=== PATIENT | female | born 1965 | race African-American/Black ===

== ENCOUNTER 2019-02-08 05:04 | Day surgery (SDC) | payer MEDICAID ==
[2019-02-08] VITALS (7 sets, daily range): BP systolic 127–159; BP diastolic 69–96
[~2019-02-08] VITALS: Ht 160 cm; Wt 71.7 kg
--- NOTE | 2019-02-08 05:15 | NUR ---
MS RN OPENING NOTES: RECEIVED PT ON ROOM AIR AND TOLERATING WELL. IV TO BE STARTED. NO SOB NOTED. NO S/S OF DISTRESS. PT AMBULATORY. CONSENTS TO BE SIGNED AND PLACED IN CHART. BED KEPT IN LOW, LOCKED POSITION, AND SIDE RAILS X 2UP. WILL CONTINUE TO MONITOR PT.
[2019-02-08] MEDS ORDERED: FLUT1DIS INH (06:16)
[2019-02-08] MEDS ORDERED: HYDR25TA4 PO (06:52)
--- NOTE | 2019-02-08 07:24 | NUR ---
MS RN CLOSING NOTES: ALL NEEDS WERE ATTENDED AND ANTICIPATED FOR. PT KEPT CLEAN, DRY, AND COMFORTABLE. PT HAS BEEN NPO SINCE 2329 PT VERBALIZED. PT SIGNED CONSENTS AND PLACED IN CHART. IV ON R FOREARM #20G AND IS PATENT AND INTACT. CURRENTLY H/L. BED KEPT IN LOW, LOCKED POSITION, AND SIDE RAILS X 2UP. PT AWAITING TO GO FOR SX WITH DR. SHEA. ENDORSED TO AM NURSE FOR IRENE.
--- NOTE | 2019-02-08 07:30 | NUR ---
m/s clerical office: initial assessment received pt in bed awake, a/ox4. no c/o pain or any discomfort. pt for surgery today on her right knee. pt last ate at 1130 last night as stated. pt remains npo. all consents in chart. instructed to call for assistance. will continue to monitor.
--- NOTE | 2019-02-08 07:50 | NUR ---
m/s email specialist: notes pt was taken to o.r. at this time via bed.
[2019-02-08] MEDS ORDERED: BUPIVACAINE 0.5 % PF 150 MG/30 ML VIAL ONE (08:13)
[2019-02-08] MEDS ORDERED: methylPREDNISolone ACETATE 80 MG/ML VIAL ONE (08:13)
[2019-02-08] MEDS ORDERED: ALBUTEROL 17GM INHALER ONE (08:13)
[2019-02-08] MEDS ORDERED: MIDAZOLAM HCL 2 MG/2ML VIAL ONE (08:23)
[2019-02-08] MEDS ORDERED: HYDROMORPHONE INJ 2 MG/ML DISP.SYRIN ONE (08:23)
--- NOTE | 2019-02-08 09:50 | NUR ---
m/s fly worker: notes received pt from recovery room with dx: s/p diagnostic and operative arthroscopy right knee with partial medial meniscectomy. pt sleepy, but arousable. pt for discharge today. right lower extremity covered with bandages with knee immobilizer. unable to assess incision due to unremovable dressing. pt is fwb at right and to f/u with dr. mitchell in one week. called dr. mitchell's office re: need for prescription for pain, left message to coordinator and will call me back as stated. vss. will continue to monitor.
--- NOTE | 2019-02-08 10:15 | NUR ---
m/s slide fastener chain assembler: notes daughter here. sam (acnp) at bedside and informed md that pt is for discharge today, awaiting for prescription from dr. mitchell.
--- NOTE | 2019-02-08 10:30 | NUR ---
m/s utility appraiser: notes dr. mitchell's office called and need someone to picking crew supervisor her prescription. pt and daughter made aware.
[2019-02-08] MEDS ORDERED: ACETAMINOPHEN 325 MG TABLET PO PRN (11:00)
[2019-02-08] MEDS ORDERED: HYDROCODONE/APAP 5/325MG 1 EACH TABLET PO PRN (11:00)
[2019-02-08] MEDS ORDERED: MAG HYDROX/AL HYDROX/SIMETH 30 ML UDC PO PRN (11:00)
[2019-02-08] MEDS ORDERED: MAGNESIUM HYDROXIDE 30 ML UDC PO PRN (11:00)
[2019-02-08] MEDS ORDERED: ZOLPIDEM TARTRATE 5 MG TABLET PO PRN (11:00)
[2019-02-08] MEDS ORDERED: ONDANSETRON HCL/PF 4 MG/2 ML VIAL IVP PRN (11:00)
--- NOTE | 2019-02-08 11:10 | NUR ---
m/s fishing hand: notes daughter remains at bedside. pt still sleepy, but arousable. pt c/o dizziness. instructed pt not to get up or put her head up at this time. b/p 147/93, hr 59. will continue to monitor. call light within reach. pt for d'c home today.
--- NOTE | 2019-02-08 12:14 | NUR ---
m/s program coordinator for residence life: notes c/o nauseas, but no vomiting. zofran 4mg ivp given by rn. daughter remains at bedside. will continue to monitor.
--- NOTE | 2019-02-08 12:44 | NUR ---
m/s political consultant: notes verbalized relief of nauseas, but pt keeps dozing on and off with dizziness. daughter remains at bedside. cn made aware. will continue to monitor.
--- NOTE | 2019-02-08 14:05 | NUR ---
m/s uniform room attendant: notes pt feeling much better. denies nausea and dizziness at this time. pt wants to go home now. b/p improved. tres ennis (dasha) here and clarify post op order instructions due to dr. paula almonte check weight bearing after surgery that says completely no weigh bearing until instructed otherwise, but on the physician order full weight bearing at right, stated, "pt should be on full weight bearing at right lower extremity."
--- NOTE | 2019-02-08 14:20 | NUR ---
m/s orthopedic nurse practitioner: notes discharge instructions with post operative instruction sheet knee arthroscopy/arthrotomy given with prescription to pt and verbalized understanding. pt has an appt with dr. mitchell on the 17 of february. h/l removed with tip intact with no bleeding, no redness, and no swelling noted. pt getting ready. instructed to call for assistance when ready.
--- NOTE | 2019-02-08 14:42 | NUR ---
m/s joy loader: discharged discharged home in stable condition accompanied by daughter via private car with all valuables and d'c papers.
[2019-02-08] MEDS ORDERED: FLUTICASONE/SALMETEROL DISKUS IH SCH (17:00)
[2019-02-09] MEDS ORDERED: HYDROCHLOROTHIAZIDE 25 MG TABLET PO SCH (09:00)
== END 2019-02-08 16:00 | disposition home or self-care (01) ==
LOC: DS 05:04 → UNDOADMIN 05:05 → MED 05:05 → UNDODISIN 14:45 → DS 16:00
PROVIDERS: ATTEND Specialist
DX: S83.241A Other tear of medial meniscus, current injury, right knee, initial encounter (principal); S83.281A Other tear of lateral meniscus, current injury, right knee, initial encounter; X58.XXXA Exposure to other specified factors, initial encounter; Y93.89 Activity, other specified; Y92.89 Other specified places as the place of occurrence of the external cause; Y99.8 Other external cause status; I10 Essential (primary) hypertension; Z79.899 Other long term (current) drug therapy; M94.261 Chondromalacia, right knee; M65.861 Other synovitis and tenosynovitis, right lower leg
CPT/HCPCS: 29880; 87081; 88304; 88311; A4217; A6402; J1100; J1170 ×2; J1200; J2250 ×2; J2405 ×2; J2704; J3490 ×2; G0378; J1040